=== PATIENT | female | born 1995 | race Caucasian/White ===

== ENCOUNTER 2017-06-07 00:14 | Emergency (ER) | payer OTHER ==
[2017-06-07] MEDS ORDERED: NS 1,000 ML IV ONE (00:17)
[2017-06-07] MEDS ORDERED: ONDANSETRON 4 MG/2 ML VIAL IVP ONE (00:17)
--- NOTE | 2017-06-07 00:18 | EDPHY ---
H & P HPI/ROS: HPI CHIEF COMPLAINT: Alcohol Intoxication HISTORY OF PRESENT ILLNESS: This patient very pleasant 21-year-old female she presents emergency room by private vehicle with friends for acute alcohol intoxication. Friends report that she drank a large amount of alcohol this evening. Denies comma ingestions. She is unable to ambulate. She is unable to participate in history review of systems at this time as she is too intoxicated. No trauma reported. She has been vomiting. Past Medical History: Unknown Past Surgical History: Unknown Social History: Unknown Family History: Unknown ROS REVIEW OF SYSTEMS: Limited due to patient's alcohol intoxication. Exam Constitutional Intoxicated, triage nursing summary reviewed, vital signs reviewed, Sleepy, smells of alcohol Eyes normal conjunctivae and sclera, horizontal beating nystagmus consistent acute alcohol intoxication, otherwise pupils equal and react to light HENT normal inspection, atraumatic, moist mucus membranes, no epistaxis, neck supple/ no meningismus, no raccoon eyes. Respiratory clear to auscultation bilaterally, normal breath sounds, no respiratory distress, no wheezing. Cardiovascular rate normal, regular rhythm, no murmur, no edema, distal pulses normal. Gastrointestinal soft, non-tender, no rebound, no guarding, normal bowel sounds, no distension, no pulsatile mass. Genitourinary no CVA tenderness. Musculoskeletal no midline vertebral tenderness, full range of motion, no calf swelling, no tenderness of extremities, no meningismus, good pulses, neurovascularly intact. Skin pink, warm, & dry, no rash, skin atraumatic. Neurologic sleepy, intoxicated with alcohol,, alert and oriented x 3, AAOx3, moves all 4 extremities equally, motor intact, sensory intact, CN II-XII intact , , normal vision, normal speech. Psychiatric normal mood/affect. Heme/Lymph/Immune no lymphadenopathy. Differential Diagnosis: Includes but is not limited to in a particular order acute alcohol intoxication, alcohol abuse, dehydration, electrolyte abnormality , nausea vomiting from acute alcohol intoxication Medical Decision Making: Plan for this patient IV establishment IV fluid bolus Zofran for nausea vomiting, check serum alcohol level. Monitor on a telemetry monitor with pulse ox. Re-evaluation: [id number]: Patient ambulated well throughout the emergency room. Clinically sober. Stable gait no ataxia. Requesting discharge. Source: Patient, Other - Medical/Surgical History Hx Asthma: No Hx Chronic Respiratory Disease: No Hx Diabetes: No Hx Cardiac Disease: No Hx Renal Disease: No Hx Cirrhosis: No Hx Alcoholism: No Hx HIV/AIDS: No Hx Splenectomy or Spleen Trauma: No Other PMH: DENIES - Social History Smoking Status: Never smoked Constitutional: Initial Vital Signs Heart Rate 59 L 06/07/17 00:23 Respiratory Rate 20 06/07/17 00:23 Blood Pressure 104/66 06/07/17 00:23 O2 Sat (%) 94 06/07/17 00:23 O2 Delivery Mode Room Air Allergies/Adverse Reactions: No Known Allergies Allergy (Verified 08/13/16 12:54) Home Medications: Medication Instructions Recorded Cephalexin [Keflex] 500 mg PO TID 5 Days 08/13/16 Vyvanse 08/13/16 Medical Decision Making - Data Points Laboratory Results: 06/07/17 00:30 Ethyl Alcohol 247 mg/dL H mg/dL (0-10) Medications Given: Discontinued Medications Sodium Chloride (Ns) 1,000 mls @ 0 mls/hr IV ONCE ONE PRN Reason: Wide Open Stop: 06/07/17 00:18 Last Admin: 06/07/17 00:34 Dose: 1,000 mls Ondansetron HCl (Zofran) 4 mg IVP EDNOW ONE Stop: 06/07/17 00:18 Last Admin: 06/07/17 00:35 Dose: 4 mg Departure - Departure Disposition: Home, Routine, Self-Care Clinical Impression: Alcoholic intoxication Qualifiers: Complication of substance-induced condition: uncomplicated Qualified Code(s): F10.920 - Alcohol use, unspecified with intoxication, uncomplicated Condition: Good Instructions: Alcohol Intoxication (ED) Referrals: Patient,NotPresent [Primary Care Provider] - As per Instructions
[2017-06-07 01:00] LABS: ETHANOL SERUM 247 mg/dL (0-10)
[2017-06-07 06:48] VITALS: BP 107/69; PULSE 70; RESP 16; TEMP 97.9; O2SAT 98
== END 2017-06-07 06:48 | disposition home or self-care (01) ==
DX: F10.920 Alcohol use, unspecified with intoxication, uncomplicated (principal); R11.10 Vomiting, unspecified
CPT/HCPCS: 96374; G0480; J2405

== ENCOUNTER 2017-11-05 11:48 | Emergency (ER) | payer OTHER ==
[2017-11-05 11:53] VITALS: RESP 18
[2017-11-05] MEDS ORDERED: ONDANSETRON DISINTEGRATING 4 MG TAB PO ONE (12:08)
[2017-11-05] MEDS ORDERED: ONDANSETRON DISINTEGRATING 4 MG TAB ONE (12:08)
--- NOTE | 2017-11-05 13:06 | EDPHY ---
General Narrative: CHIEF COMPLAINT: Nausea vomiting HISTORY OF PRESENT ILLNESS: Patient complains of nausea vomiting started at 4:00 a.m.. She describes awaking feeling nauseated and very shortly after vomiting. She has had 5 episodes of vomiting of clear and bilious emesis. She had epigastric discomfort with this that has improved. She no longer described as pain but as a cramping discomfort. She has had decreasing episodes this morning. No blood in the emesis. No constipation. One episode of loose stool. No fever or chills. No chest pain or shortness of breath. No cough. No sore throat. No runny nose. No body aches or malaise. No myalgias. No recent sick contacts. No history of GERD or reflux. No drug use. No alcohol ingestion last night. No other associated complaints or modifying factors. REVIEW OF SYSTEMS: Ten systems reviewed and are negative unless otherwise noted in the HPI PCP: Does not recall their name. Does go to [facility] [place] at at times SPECIALISTS: None PAST MEDICAL HISTORY: ADD. Mirena in place for 2 years PAST SURGICAL HISTORY: No recent surgeries SOCIAL HISTORY: Nonsmoker. Occasional alcohol. No drug use. [employer] student. Originally from [place] FAMILY HISTORY: Noncontributory EXAMINATION General Appearance: Alert, no distress, well-appearing. Texting on her phone Head: normocephalic, atraumatic Eyes: Pupils equal and round, no conjunctival pallor or injection ENT, Mouth: Mucous membranes moist. Uvula midline. Airway widely patent Neck: Normal inspection, supple, non-tender Respiratory: Lungs are clear to auscultation. No wheezing, rhonchi or crackles Cardiovascular: Regular rate and rhythm. No murmur Gastrointestinal: Abdomen is soft and nontender. No tympany rigidity. Pierced umbilicus. No guarding. Benign abdominal examination Neurological: A&O, nonfocal, normal gait Skin: Warm and dry, no rash. No petechiae or purpura Extremities: Nontender, no pedal edema Psychiatric: Mood and affect normal DIFFERENTIAL DIAGNOSES: Including but not limited to gastroenteritis, enteritis, gastritis, viral syndrome MDM: 12:55 p.m. Nausea vomiting of less than 12 hr duration. Her episodes are decreased in frequency. Since arrival to the emergency department she has not vomited. She had a dose of Zofran and is feeling significantly better. She is drinking a smoothie at bedside. She has mild discomfort but no actual pain. Her abdominal exam is completely benign. She is well-appearing and nontoxic. She appears hydrated. I do not feel she warrants IV placement or laboratory studies at this time. I do not feel she warrants any imaging and she is improving. She does present with a likely viral gastritis versus gastroenteritis. We discussed discharge home with 2 forms of nausea medication. We discussed clear liquids and advancing as tolerated. We discussed ED precautions. She is comfortable this plan and discharged in stable condition. SUPERVISION: Patient was independently examined, but I discussed the case with my secondary supervising physician Dr. Christina - History Smoking Status: Never smoked - Objective Vital Signs: Initial Vital Signs Heart Rate 96 11/05/17 11:50 Respiratory Rate 18 11/05/17 11:50 Blood Pressure 101/70 11/05/17 11:50 O2 Sat (%) 97 11/05/17 11:50 O2 Delivery Mode Room Air Allergies/Adverse Reactions: No Known Allergies Allergy (Verified 11/05/17 11:49) Home Medications: Medication Instructions Recorded Dilma 08/13/16 Ondansetron Odt [Zofran Odt 4 mg 4 mg PO Q6 PRN #12 tab 11/05/17 (*)] Promethazine HCl [Phenergan 25mg 25 mg PO Q8 PRN #12 tab 11/05/17 (*)] Medications Given: Discontinued Medications Ondansetron HCl (Zofran Odt) 4 mg PO EDNOW ONE Stop: 11/05/17 12:09 Last Admin: 11/05/17 12:09 Dose: 4 mg Departure - Departure Disposition: Home, Routine, Self-Care Clinical Impression: Gastroenteritis Condition: Good Instructions: Gastroenteritis (ED), Acute Nausea and Vomiting (ED) Additional Instructions: 1. Medications as prescribed as needed 2. Clear liquid diet, advancing slowly as tolerated 3. Return to ED for return of vomiting, fever, abdominal pain Referrals: [facility],. [Clinic] - As per Instructions Stand Alone Forms: School Excuse Prescriptions: Ondansetron Odt [Zofran Odt 4 mg (*)] 4 mg PO Q6 PRN #12 tab PRN Reason: Nausea/Vomiting, Use 1st Promethazine HCl [Phenergan 25mg (*)] 25 mg PO Q8 PRN #12 tab PRN Reason: Nausea/Vomiting, Use 1st
[2017-11-05 13:23] VITALS: BP 112/79; PULSE 81; TEMP 97.9; O2SAT 99
== END 2017-11-05 13:22 | disposition home or self-care (01) ==
DX: K52.9 Noninfective gastroenteritis and colitis, unspecified (principal)